=== PATIENT | male | born 1960 | race Hispanic/Latino ===

== ENCOUNTER → 2019-12-14 | Outpatient (CLI) | payer OTHER, MEDICARE ==
--- NOTE | 2019-12-15 06:12 | NUR ---
PATIENT STATES HE TAKES PRESCRIBED MEDICATIONS BUT UNABLE TO RECALL MILLIGRAMS OR SCHEDULED DOSAGES. STATES HE TAKES LOSARTAN FOR BLOOD PRESSURE, METFORMIN FOR SUGAR, PLAVIX TO THIN BLOOD. Addendum: 12/15/19 at 0615 by KULWANT GIRON Amended: Links added.
== END | disposition home or self-care (01) ==
LOC: SLP 21:24
PROVIDERS: ATTEND Family Medicine
DX: G47.33 Obstructive sleep apnea (adult) (pediatric) (principal); R06.83 Snoring
CPT/HCPCS: 95810; 95811

== ENCOUNTER 2024-02-16 08:59 | Day surgery (SDC) | payer OTHER ==
[2024-02-12 14:00] LABS: BASOPHILS # (AUTO) 0.04 K/uL (0.00-0.20); BASOPHILS % (AUTO) 0.6 % (0.0-5.0); EOSINOPHILS # (AUTO) 0.11 K/uL (0.00-0.70); EOSINOPHILS % (AUTO) 1.7 % (0.0-8.0); HEMATOCRIT 44.4 % (42-54); IMMATURE GRANULOCYTE ABSOLUTE 0.03 K/uL (0-1); LYMPHOCYTES # (AUTO) 1.8 K/uL (1.0-4.8); LYMPHOCYTES % (AUTO) 27.2 % (21.0-51.0); MEAN CORPUSCULAR HGB CONC 34.9 g/dL (32.0-36.0); MONOCYTES # (AUTO) 0.4 K/uL (0.1-1.0); MONOCYTES % (AUTO) 6.3 % (3.0-13.0); NEUTROPHILS # (AUTO) 4.3 K/uL (1.8-7.7); NEUTROPHILS % (AUTO) 63.7 % (40.0-77.0); PLATELET COUNT (AUTO) 142 K/uL (130-400); RED BLOOD CELL COUNT(AUTO) 5.35 MIL/uL (4.50-6.20); RED CELL DISTRIBUTION WIDTH 14.6 % (11.0-15.5); WHITE BLOOD COUNT (AUTO) 6.7 K/uL (4.8-10.8)
[2024-02-12 14:11] LABS: INR 0.96 (0.85-1.15); PROTHROMBIN TIME 11.4 SEC (9.6-11.6)
[2024-02-12 14:13] LABS: PARTIAL THROMBOPLASTIN TIME 30.2 SEC (26.3-35.5)
[2024-02-12 14:22] LABS: CREATININE 1.1 mg/dL (0.5-1.3); POTASSIUM 4.3 mmol/L (3.5-5.1)
[2024-02-12 14:40] VITALS: BP 122/75; PULSE 64; RESP 16
[2024-02-16] VITALS (15 sets, daily range): BP systolic 108–232; BP diastolic 67–80; PULSE 58–66; RESP 12–19
[~2024-02-16] VITALS: Ht 172.7 cm; Wt 95.9 kg
[~2024-02-16 08:59] MED LIST: AMLO-258 PO; ATOR40TA69 PO; CLON0.2T PO; CLOP75TA32 PO; DAPA10TA PO; FURO40TA5 PO; GLIM4TAB36 PO; METF-446 PO; METO-409 PO; POTA10CA85 PO; SACU1TAB7 PO
[2024-02-16] MEDS ORDERED: MIDAZOLAM HCL 1 MG/ML 2ML VIAL ONE (09:15)
[2024-02-16] MEDS ORDERED: PROPOFOL 10 MG/ML 20ML VIAL IV ONE (09:15)
[2024-02-16] MEDS ORDERED: FENTANYL CITRATE PF 50 MCG/1 ML 2ML VIAL ONE (09:16)
[2024-02-16] MEDS ORDERED: ROCURONIUM BROMIDE 10MG/1ML 5ML VL ONE (09:16)
[2024-02-16] MEDS: BUPIVACAINE/PF 0.5% 30ML VIAL INJ ONE (09:46)
[2024-02-16] MEDS: CEFAZOLIN SODIUM 2 GM VIAL ONE (10:02)
[2024-02-16] MEDS: 0.9%NACL 1000ML 1,000 ML IV ONE (10:03)
[2024-02-16] MEDS ORDERED: ONDANSETRON 4MG INJ ONE (10:11)
[2024-02-16] MEDS: BUPIVACAINE/EPI/PF 0.5% 30ML VIAL IJ ONE (10:53)
[2024-02-16] MEDS ORDERED: GLYCOPYRROLATE 0.2 MG/ML 5 ML VIAL ONE (11:09)
[2024-02-16] MEDS ORDERED: TRAM50TA4 PO (11:09)
[2024-02-16] MEDS ORDERED: NEOSTIGMINE METHYLSULFATE 1MG/ML IV ONE (11:09)
[2024-02-16] MEDS ORDERED: DOCU-116 PO (11:09)
[2024-02-16] MEDS: ONDANSETRON 4MG INJ ONE (11:50)
[2024-02-16] MEDS: MEPERIDINE-PF 25 MG/ML SYG ONE (11:51)
== END 2024-02-16 12:54 | disposition home or self-care (01) ==
LOC: DAH 08:59
PROVIDERS: ATTEND Surgery
DX: L72.3 Sebaceous cyst (principal); L72.0 Epidermal cyst; E11.9 Type 2 diabetes mellitus without complications; E78.5 Hyperlipidemia, unspecified; I10 Essential (primary) hypertension; Z82.49 Family history of ischemic heart disease and other diseases of the circulatory system; Z82.5 Family history of asthma and other chronic lower respiratory diseases; Z82.3 Family history of stroke; Z87.891 Personal history of nicotine dependence; Z79.899 Other long term (current) drug therapy; Z79.84 Long term (current) use of oral hypoglycemic drugs; Z95.5 Presence of coronary angioplasty implant and graft
CPT/HCPCS: 86900 ×2; 80048; 85025; 85610; 85730; 86850 ×2; 86901 ×2; 36415 ×2; 11406; 82948 ×2; 88304; A6260; A4663; A4452; J3010; J7030; J3490 ×3; J2250; J2704; J2405 ×2; J2710; J2175; J0690; A4930 ×2; A4215; A4223; A4222; A4221; A4600; J0665

== ENCOUNTER → 2024-02-24 | Outpatient (CLI) | payer OTHER ==
[~2024-02-24] MED LIST changes: +DOCU-116 PO; +TRAM50TA4 PO
== END | disposition home or self-care (01) ==
LOC: SHCH 14:13
PROVIDERS: ATTEND Internal Medicine Cardiovascular Disease
DX: I08.8 Other rheumatic multiple valve diseases (principal); I42.8 Other cardiomyopathies; I10 Essential (primary) hypertension; E78.5 Hyperlipidemia, unspecified; E11.9 Type 2 diabetes mellitus without complications
CPT/HCPCS: 93306

== ENCOUNTER → 2024-03-02 | Outpatient (CLI) | payer OTHER ==
[2024-03-02 12:13] LABS: POTASSIUM 3.6 mmol/L (3.5-5.1)
[2024-03-02 12:15] LABS: HEMOGLOBIN A1C 7.9 % (4.0-6.0)
== END | disposition home or self-care (01) ==
LOC: LAB 11:23
PROVIDERS: ATTEND Internal Medicine Cardiovascular Disease
DX: E11.9 Type 2 diabetes mellitus without complications (principal); I25.10 Atherosclerotic heart disease of native coronary artery without angina pectoris
CPT/HCPCS: 36415; 80048; 83036